=== PATIENT | female | born 1980 | race American Indian/Alaskan Native ===

== ENCOUNTER 2016-12-13 16:56 | Emergency (ER) | payer OTHER ==
--- NOTE | 2016-12-13 19:37 | Emergency Department Report ---
HPI - General Chief Complaint: Extremity Injury, Lower Time Seen by Provider: 12/13/16 18:36 - HPI HPI: 36-year-old female presents today with right foot pain since last night. Patient states that the pain worsened today post working. Patient has a standing job. Denies injury or trauma. Pain worse with weightbearing. Denies numbness, weakness, paresthesias. Describes her pain as 10 out of 10 burning, shooting pain. He tried ibuprofen and naproxen without relief. Denies fever, chills, nausea, vomiting, chest pain, shortness of breath, abdominal pain. Denies headache, visual changes. ED Past Medical Hx - Past Medical History Hx Hypertension: Yes Hx Diabetes: Yes Additional medical history: Hand nerve issue / carpel tunnel - Surgical History Additional Surgical History: hands, hernia, ectopic preg (TUBE REMOVED). TONSILLECTOMY. TUBAL LIGATION - Social History Smoking Status: Never Smoker Substance Use Type: Alcohol - Medications Home Medications: Home Medications Medication Instructions Recorded Confirmed Last Taken Type Azelastine 0.1% (Nf) [Astelin (Nf)] 137 mcg NS QDAY #1 bottle 10/30/16 Unknown Rx Fluticasone [Flonase] 1 spray NS QDAY #1 bottle 10/30/16 Unknown Rx Naproxen [Naprosyn TAB] 500 mg PO BID PRN #20 tablet 10/30/16 Unknown Rx Indomethacin [Indocin] 25 mg PO Q8H #21 capsule 12/13/16 Unknown Rx ED Review of Systems ROS: Stated complaint: RIGHT FOOT SEVERE PAIN Other details as noted in HPI Constitutional: denies: chills, fever, malaise Eyes: denies: eye pain ENT: denies: ear pain, throat pain, congestion Respiratory: denies: cough, shortness of breath, wheezing Cardiovascular: denies: chest pain, palpitations Endocrine: no symptoms reported Gastrointestinal: denies: abdominal pain, nausea, vomiting Musculoskeletal: joint swelling, arthralgia Neurological: denies: headache, weakness, numbness, paresthesias Physical Exam - Physical Exam Vital Signs: Vital Signs 12/13/16 17:20 Temperature 97.8 F Pulse Rate 99 H Respiratory 18 Rate Blood Pressure 146/104 O2 Sat by Pulse 99 Oximetry Physical Exam: GENERAL: The patient is well-developed and well-nourished. Patient is in NAD. HEAD: Normocephalic. Atraumatic. CHEST/LUNGS: Clear to auscultation throughout. HEART/CARDIOVASCULAR: Regular rate and rhythm. ABDOMEN: Abdomen is soft, nontender. No guarding or rebound tenderness. RIGHT FOOT: Tenderness to palpation of the base of second toe. No erythema, deformity or crepitus noted. Minimal swelling noted. Peripheral pulses intact. Capillary refill less than 2 seconds. NEURO: Alert and oriented x 3. GCS score of 15. ED Course Vital Signs 12/13/16 17:20 Temperature 97.8 F Pulse Rate 99 H Respiratory 18 Rate Blood Pressure 146/104 O2 Sat by Pulse 99 Oximetry ED Medical Decision Making - Lab Data Vital Signs 12/13/16 12/13/16 17:20 22:01 Temperature 97.8 F 98.3 F Pulse Rate 99 H 93 H Respiratory 18 20 Rate Blood Pressure 146/104 Blood Pressure 159/99 [Right] O2 Sat by Pulse 99 98 Oximetry - Radiology Data Radiology results: report reviewed PROCEDURE: XR FOOT 3 RT TECHNIQUE: Three views of the right foot are obtained HISTORY: Pain at base of 2nd toe COMPARISON: No prior studies are available for comparison. FINDINGS: Accessory navicular ossicle is seen. Calcifications are seen associated with the distal head of the 2nd metatarsal that are likely arthritic calcifications but could possibly be sesamoid bones. Soft tissue swelling is seen diffusely. Tiny calcaneal plantar spur is seen. IMPRESSION: A few small calcific densities are seen adjacent to the distal head of the 2nd metatarsal possibly due to arthritic calcifications or possibly a sesamoid bone. - Medical Decision Making 36-year-old female presents today with a right foot pain 1 day. Her x-ray results reveal a few small calcific densities seen adjacent to the distal head of the 2nd metatarsal possibly due to arthritic calcifications or possibly a sesamoid bone. No fracture or dislocation. Patient was given Toradol and reports some symptomatic relief.Patient is in no acute distress at this time. She will be discharged home and is encouraged to follow up with a primary care provider. She will be sent home on Toradol and is encouraged to return to the emergency room for any worsening symptoms. Critical care attestation.: If time is entered above; I have spent that time in minutes in the direct care of this critically ill patient, excluding procedure time. ED Disposition Clinical Impression: Foot pain Qualifiers: Laterality: right Qualified Code(s): M79.671 - Pain in right foot Disposition: DISCHARGED TO HOME OR SELFCARE Is pt being admited?: No Does the pt Need Aspirin: No Condition: Stable Instructions: Arthralgia (ED) Additional Instructions: Follow with primary care provider. Return to the emergency department if symptoms worsen. Prescriptions: Indomethacin [Indocin] 25 mg PO Q8H #21 capsule Referrals: PRIMARY MD VILMA [Primary Care Provider] - 3-5 Days TREVOR PARKER MD [Staff Physician] - 3-5 Days Forms: Work/School Release Form(ED) Time of Disposition: 21:29
--- NOTE | 2016-12-13 19:58 | XRay Report ---
FINAL REPORT PROCEDURE: XR FOOT 3 RT TECHNIQUE: Three views of the right foot are obtained HISTORY: Pain at base of 2nd toe COMPARISON: No prior studies are available for comparison. FINDINGS: Accessory navicular ossicle is seen. Calcifications are seen associated with the distal head of the 2nd metatarsal that are likely arthritic calcifications but could possibly be sesamoid bones. Soft tissue swelling is seen diffusely. Tiny calcaneal plantar spur is seen. IMPRESSION: A few small calcific densities are seen adjacent to the distal head of the 2nd metatarsal possibly due to arthritic calcifications or possibly a sesamoid bone.
[2016-12-13] MEDS ORDERED: TORADOL ONE (20:53)
[2016-12-13 22:02] VITALS: BP 159/99
[2016-12-13] MEDS ORDERED: TORADOL IM ONE (22:03)
== END 2016-12-13 22:00 | disposition home or self-care (01) ==
LOC: ED 16:56
DX: M79.671 Pain in right foot (principal); I10 Essential (primary) hypertension; E11.9 Type 2 diabetes mellitus without complications; Z98.51 Tubal ligation status
CPT/HCPCS: 73630; 96372; 99283; J1885